=== PATIENT | female | born 1980 | race Caucasian/White ===

== ENCOUNTER 2021-12-12 17:55 | Observation (INO) | payer BC ==
[~2021-12-12 17:55] MED LIST: Iopamidol 300 61% 100 ML VIAL FS ONE
[2021-12-12] MEDS ORDERED: Ketorolac Tromethamine 30 MG/ML VIAL ONE (18:44)
[2021-12-12] MEDS ORDERED: Ondansetron PF 4 MG/2 ML Vial ONE (18:44)
[2021-12-12 18:50] LABS: Bilirubin Neg (Negative); Blood, Urine Negative (Negative); Clarity Clear (Clear); Glucose, Urine (Dipstick) Normal (Negative); Ketone, Urine 5 mg/dL (Negative); Leukocyte 25 (Negative); Nitrite Negative (Negative); Protein, Urine (Dipstick) 30 mg/dl (Neg-Trace); Specific Gravity, Urine 1.025 (1.002-1.036)
[2021-12-12 18:58] LABS: #Eosinphils 0.1 10x3/uL (0.0-0.5); #Monocytes 0.5 10x3/uL (0.0-1.1); #Neutrophils 2.8 10x3/uL (1.5-8.4); %Basophils 0.6 % (0.0-2.0); %Eosinophils 1.2 % (0.0-6.0); %Lymphocytes 33.6 % (18.0-47.0); %Monocytes 9.6 % (0.0-10.0); %Neutrophils 54.8 % (40.0-75.0); Hemoglobin 12.3 g/dL (12.0-15.5); Mean Corpuscular HGB CONC 35.8 g/dL (32.0-36.0); Mean Corpuscular Hemoglobin 32.3 pg (27.0-33.0); Mean Corpuscular Volume 90.3 fl (81.6-98.3); Mean Platelet Volume 11.3 fl (7.4-10.4); Platelet Count 227 10x3/uL (150-450); RBC Distribution Width 11.9 % (11.5-14.5); Red Blood Cell (RBC) Count 3.81 10x6/uL (3.90-5.03); White Blood Cell (WBC) Count 5.1 10x3/uL (3.5-10.5)
[2021-12-12 19:05] LABS: Bacteria/HPF None Seen HPF (None Seen); RBC/HPF None Seen HPF (0-3); WBC/HPF 0-3 HPF (0-3)
[2021-12-12 19:15] LABS: ALT (SGPT) 17 U/L (8-55); AST (SGOT) 18 U/L (5-34); Albumin 4.3 g/dL (3.5-5.0); Alkaline Phosphatase 41 U/L (40-110); Anion Gap 11 mmol/L (10-20); BUN (Urea Nitrogen) 16 mg/dL (7.0-18.7); Bilirubin, Total 0.8 mg/dL (0.2-1.2); Calc. Creatinine Clearance 0 mL/min (70-130); Carbon Dioxide 26 mmol/L (22-29); Chloride 104 mmol/L (98-107); Estimated GFR 83; Globulin 2.7 g/dL (2.4-3.5); Glucose 102 mg/dL (70-105); Lipase 24 U/L (8-78); Potassium 3.5 mmol/L (3.5-5.1); Sodium 137 mmol/L (136-145)
[2021-12-12] MEDS ORDERED: Ondansetron PF 4 MG/2 ML Vial IVP PRN (21:47)
[2021-12-12] MEDS ORDERED: Zolpidem Tartrate 5 MG TAB PO PRN (21:47)
[2021-12-12] MEDS ORDERED: Calcium Carbonate 500 MG ChewTAB PO PRN (21:47)
[2021-12-12] MEDS ORDERED: HYDROcodone/Acetaminophen 5/325 mg Tablet PO PRN (21:47)
[2021-12-12] MEDS ORDERED: Senokot S 8.6-50 MG TAB PO PRN (21:47)
[2021-12-12] MEDS ORDERED: Acetaminophen 325 MG TAB PO PRN (21:47)
[2021-12-12] MEDS ORDERED: Guaifenesin DM 100-10/5 ML UDCUP PO PRN (21:47)
[2021-12-12] MEDS ORDERED: Nitroglycerin 0.4 MG TAB (25 Tab Bottle) SL PRN (22:08)
[2021-12-12 22:36] VITALS: BMI 25.9
[2021-12-12] MEDS ORDERED: Lidocaine 2% Viscous Solution 10 ML, Aluminum & Magnesium Hydroxide 30 ML SSW SCH (23:00)
[2021-12-12] MEDS ORDERED: Famotidine/PF 20 mg/2ml Vial SLOW IVP SCH (23:00)
[2021-12-12] MEDS ORDERED: Lactated Ringer's 1,000 ML IV SCH (23:15)
[2021-12-12 23:26] LABS: SARS-CoV-2 NAA Rapid Test Not Detected (NotDetected)
[2021-12-12] MEDS ORDERED: Lidocaine Viscous Sol 2% 15 ml UD Cup ONE (23:27)
[2021-12-13 01:41] LABS: Troponin I Less than 0.010 ng/mL (< 0.028)
[2021-12-13 04:45] LABS: ALT (SGPT) 12 U/L (8-55); AST (SGOT) 13 U/L (5-34); Albumin 3.2 g/dL (3.5-5.0); Alkaline Phosphatase 33 U/L (40-110); Anion Gap 10 mmol/L (10-20); BUN (Urea Nitrogen) 16 mg/dL (7.0-18.7); Bilirubin, Total 0.6 mg/dL (0.2-1.2); Calc. Creatinine Clearance 115 mL/min (70-130); Calcium 8.8 mg/dL (7.8-10.44); Carbon Dioxide 25 mmol/L (22-29); Chloride 111 mmol/L (98-107); Estimated GFR 96; Globulin 2.2 g/dL (2.4-3.5); Glucose 84 mg/dL (70-105); Magnesium 1.8 mg/dL (1.6-2.6); Potassium 3.9 mmol/L (3.5-5.1); Protein, Total 5.4 g/dL (6.0-8.3); Sodium 142 mmol/L (136-145)
[2021-12-13 04:59] LABS: Free T4 (Free Thyroxine) 0.99 ng/dL (0.70-1.48)
[2021-12-13] MEDS ORDERED: Lisdexamfetamine Dimesylate 20 MG CAPSULE PO SCH (09:00)
[2021-12-13 12:03] LABS: Hemoglobin A1c 4.5 % (4.0-6.0)
[2021-12-13] MEDS ORDERED: Enoxaparin Sodium 40 MG/0.4 ML SYRINGE SC SCH (21:00)
[2021-12-14 04:31] LABS: #Eosinphils 0.1 10x3/uL (0.0-0.5); #Monocytes 0.4 10x3/uL (0.0-1.1); #Neutrophils 2.2 10x3/uL (1.5-8.4); %Basophils 0.6 % (0.0-2.0); %Eosinophils 2.5 % (0.0-6.0); %Lymphocytes 43.3 % (18.0-47.0); %Monocytes 8.3 % (0.0-10.0); %Neutrophils 45.1 % (40.0-75.0); Hemoglobin 11.1 g/dL (12.0-15.5); Mean Corpuscular HGB CONC 35.6 g/dL (32.0-36.0); Mean Corpuscular Hemoglobin 32.8 pg (27.0-33.0); Mean Corpuscular Volume 92.3 fl (81.6-98.3); Mean Platelet Volume 11.7 fl (7.4-10.4); Platelet Count 182 10x3/uL (150-450); RBC Distribution Width 11.9 % (11.5-14.5); Red Blood Cell (RBC) Count 3.38 10x6/uL (3.90-5.03); White Blood Cell (WBC) Count 4.8 10x3/uL (3.5-10.5)
[2021-12-14 04:38] LABS: ALT (SGPT) 9 U/L (8-55); AST (SGOT) 11 U/L (5-34); Albumin 3.2 g/dL (3.5-5.0); Alkaline Phosphatase 35 U/L (40-110); Anion Gap 10 mmol/L (10-20); BUN (Urea Nitrogen) 13 mg/dL (7.0-18.7); Bilirubin, Direct 0.1 mg/dL (0.1-0.3); Bilirubin, Total 0.4 mg/dL (0.2-1.2); Calc. Creatinine Clearance 119 mL/min (70-130); Calcium 9.3 mg/dL (7.8-10.44); Carbon Dioxide 25 mmol/L (22-29); Chloride 110 mmol/L (98-107); Cholesterol 136 mg/dl (< 200 Desired); Estimated GFR 101; Glucose 93 mg/dL (70-105); HDL Cholesterol 46 mg/dL (>60 Neg Risk); LDL Cholesterol, Calculated 72 mg/dL; Magnesium 1.8 mg/dL (1.6-2.6); Protein, Total 5.5 g/dL (6.0-8.3); Sodium 141 mmol/L (136-145); Triglycerides 92 mg/dL (Less than 150)
[2021-12-14 08:26] VITALS: BP 123/60; TEMP 95.5
== END 2021-12-14 09:22 | disposition home or self-care (01) ==
LOC: CSHERS 17:55 → CSHTELE 22:29 → MERGE 22:29 → INTOOBSV 22:29
PROVIDERS: ADMIT Student in an Organized Health Care Education/Training Program; ATTEND Family Medicine
DX: R07.89 Other chest pain (principal); R06.02 Shortness of breath; R00.2 Palpitations; R42 Dizziness and giddiness; R10.12 Left upper quadrant pain; F90.9 Attention-deficit hyperactivity disorder, unspecified type; E04.1 Nontoxic single thyroid nodule; Z79.899 Other long term (current) drug therapy; Z20.822 Contact with and (suspected) exposure to COVID-19; Z87.442 Personal history of urinary calculi; Z90.710 Acquired absence of both cervix and uterus; Z98.51 Tubal ligation status
CPT/HCPCS: 36415; 71045; 71250; 74177; 76536; 80048; 80053; 80061; 80076; 81003; 81015; 83036; 83605; 83690; 83735; 83880; 84439; 84443; 84484; 85025; 85379; 86140; 93005; 93010; 93306; 96361; 96372; 96374; 96375; 96376; G0378; J1650; J1885; J2405; J7120; Q9967; S0028; U0002

== ENCOUNTER 2022-07-10 17:52 | Emergency (ER) | payer BC | END 2022-07-10 19:53 | disposition home or self-care (01) | LOC: CSHERS 17:52 | DX: M25.532 Pain in left wrist (principal); W23.0XXA Caught, crushed, jammed, or pinched between moving objects, initial encounter ==